=== PATIENT | female | born 1960 | race Caucasian/White ===

== ENCOUNTER → 2016-11-07 | Outpatient (CLI) | payer MEDICARE | LOC: EMI 13:45 | DX: M54.16 Radiculopathy, lumbar region (principal); M48.06 Spinal stenosis, lumbar region; M99.73 Connective tissue and disc stenosis of intervertebral foramina of lumbar region | CPT/HCPCS: 72148 ==

== ENCOUNTER → 2017-01-26 | Outpatient (CLI) | payer MEDICARE | LOC: RAD 09:00 | PROC: BQ30YZZ Magnetic Resonance Imaging (MRI) of Right Hip using Other Contrast (ICD-10-PCS; principal; 2017-01-26) | DX: S76.011A Strain of muscle, fascia and tendon of right hip, initial encounter (principal) | CPT/HCPCS: 73722; A9577; Q9962 ==